=== PATIENT | male | born 1950 | race Caucasian/White ===

== ENCOUNTER 2022-11-09 14:15 | Outpatient (RCR) | payer MEDICARE, BC, SELFPAY ==
--- NOTE | 2022-11-03 14:51 | PT.OPEX ---
[facility] Eval Start: 11/03/22 10:26 Freq: Status: Active Protocol: Document 11/03/22 10:26 JEFFREY (Rec: 11/03/22 14:49 KLV [id number]) E-signed By Lanette Whitt, PT Physical Therapy Outpatient Evaluation Insurance Information Recert Due Date 01/28/23 Insurance Name Medicare B Insurance Information/Comments [employer] Medical Diagnosis Unspecified injury of left shoulder and upper arm, initial encounter Treating Diagnosis L shoulder pain, muscle weakness, impaired postural positioning Referring MD [address] Subjective Subjective Sharon reports to PT with primary complaint of L shoulder/arm pain and tingling down through mid humerus with initial onset about 1 month ago following a fall where he slipped on ice and landed on his left shoulder. He has had chiropractor appointments with no relief. 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 Pain is aggravated by sitting, looking down and reading (notices arm tingling) . Denies pain with overhead motions, ADLs, lifting, or sleeping. Denies weakness in L UE. Goal is to improve pain with sitting and reading. Has not tried ice/heat. Occasionally takes a tylenol for pain relief but infrequently. Imaging: none PMH: arthritis Pain Comments 01/25 worst Date of Last Physician Visit 11/02/22 Current Work Status [employer] Occupation Lifts boxes at [employer] Precautions Therapy Limitations/Systems Review Not Limited Objective Other/Pertinent Objective All UE ROM WNL and no pain Cervical ROM: -rotation WNL no pain -SB significant limitation B: R4, L6 UE Strength (R/L): -ER0: R: 5/5, L: 4/5 -IR0: R:5/5, L: 5/5 -FF: R: 5/5, L: 4/5 with mild reproduction of symptoms to anterior shoulder -Abduction: R: 5/5, L: 5/5 -Mid Trap: R: 4-/5, L: 3+/5 -Lower Trap: R: 3/5, L: 3/5 Cervical Screen: -Spurlings: - -Compression + Impingement: -Meier-Dean:- Labral: -Modified Fox?s: - Bicep Tendon: -Speeds:- Rotator Cuff: -Drop Arm Test:- -ER Lag:- -Belly Press:- Instability: -Sulcus Sign: - Postural positioning: significant guarding with L>R shoulder elevation and rounded shoulders/forward head Palpation: Significant tone through L UT Functional Test Performed & Score QuickDASH: 11.4% Assessment Assessment/Impression Patient is a 71 year old male presenting to physical therapy for evaluation and treatment of L shoulder pain with initial onset following a fall about a month ago. Patient presents with limited cervical mobility (SB), significant muscular tone (B UT), poor postural positioning with periscapular weakness. Impairments demonstrated indicative of neural tension rather than potential for RC tear or fracture. He would benefit from gentle cervical mobility and periscapular strengthening exercises in order to alleviate tension throughout L UE. These impairments are limiting the patients ability to sit and read comfortably. Patient appears motivated to participate in PT and presents with good prognosis to improve mobility, strength, proprioception and return to functional activities with skilled physical therapy intervention. Primary Functional Limitations sit and read comfortably Plan of Care Rehabilitation Potential Good Physical Therapy Goals In 4-6 sessions: Pt will exhibit 10 point improvement in QuickDASH Outcome measure to demonstrate functional improvement and progress towards goals. Pt will demonstrate improved sitting posture without cueing in consecutive sessions in order to decrease strain on neck and L UE Pt will exhibit RC, GH, and periscapular strength no less than 4+/5 in order to improve sitting and standing posture Pt will report <2/10 pain with sitting and reading Treatment Plan/Direct Interventions Ice/Cold/Vasopneumatic,Joint Mobilization,Manual Therapy, Neuromuscular Re-ed,Self-Care/ Home Management,Therapeutic Activities,Therapeutic Exercises Frequency/Duration 1x/wk for 4-6 sessions Patient Will Be Discharged From Therapy Completion of LTG(s), Independent w/HEP, Independently Progressing Evaluation Billing Untimed Code Treatment Minutes 24 Complexity Low Certification Information Initial Certification Date 11/03/22 Ending Certification Date 01/28/23 Provider Signature Shows Agreement With POC & Medical Necessity Physician Signature & Date Requested Please Sign/Date Here Physician Comment/Change : Physician NPI Number #
== END 2023-02-16 15:33 | disposition home or self-care (01) ==
PROVIDERS: PCP Family Medicine; Visit Provider Student in an Organized Health Care Education/Training Program
DX: S49.92XA Unspecified injury of left shoulder and upper arm, initial encounter (principal); Z51.89 Encounter for other specified aftercare
CPT/HCPCS: 97110; 97161